=== PATIENT | male | born 1950 | race Caucasian/White ===

== ENCOUNTER 2018-07-30 06:35 | Day surgery (SDC) | payer MEDICARE, BC ==
[~2018-07-30 06:35] MED LIST: Midazolam 1 MG/ML 2 ML SDV ONE; fentaNYL 100 MCG/2 ML SDV ONE
[2018-07-30] MEDS ORDERED: Midazolam 1 MG/ML 2 ML SDV IV ONE ×3 (06:36→07:32)
[2018-07-30] MEDS ORDERED: fentaNYL 100 MCG/2 ML SDV IV ONE ×3 (06:36→07:30)
[2018-07-30] MEDS ORDERED: Dextrose 5%-0.45% NaCl 1,000 ML IV SCH (06:45)
--- NOTE | 2018-07-30 11:37 | OR ---
DATE: 07/30/2018 PROCEDURES: Esophagogastroduodenoscopy, narrow-band imaging, and multiple pinch biopsies. INSTRUMENT USED: GIF-Q180 Olympus video panendoscope. PREMEDICATIONS: No oral topical anesthesia used. Fentanyl 100 mcg intravenous, Versed 2 mg intravenous. Nasal 2 L O2 cannula. The procedure was done under pulse oximetry, BP recording, and seed pelleter. INDICATION: The patient with longstanding heartburn unexplained and not responsive to medical measures, on acid suppressant. DESCRIPTION OF PROCEDURE: Esophagogastroduodenoscopy is performed for detection of any active erosive lesions. Maldonado esophagus and/or malignancy also under consideration. H. pylori status to be determined. Endoscopic hemostasis therapy if needed. The scope was passed with ease. Adequate visualization of the esophagus was made from proximal to distal areas. No upper esophageal lesions identified. No distal esophageal stricture. No uphill or downhill esophageal varices. No Anya-Tucker tear noted. Grade D erosive changes were noted by [place] criteria. No esophageal polyp or tumor mass identified. [place] columnar epithelium was noted at around 30 cm distal to the oral verge, features consistent with Maldonado esophagus. Four-quadrant biopsies were taken from the area and sent for any histopathologic evidence of intestinal metaplasia. No proximal gastric varices noted. Gastric fundus examination by retroflexion showed no polypoid lesions. No gastric ulcer, malignant mass, or vascular ectasia identified. Duodenal bulb showed no ulcer. Visualized second part of the duodenum was unremarkable. Multiple pinch biopsies were taken from the gastric antrum and proximal body and sent for PyloriTek test for H. pylori and histopathology. No bleeding was noted from any of the visualized areas at the completion of examination. Photographs were taken of the duodenal bulb, gastric antrum, fundus, and distal esophagus. IMPRESSION: 1. Grade D gastroesophageal reflux disease. 2. Columnar-lined distal esophagus. The patient tolerated the procedure well. [facility] /[id number]
== END 2018-07-30 09:49 | disposition home or self-care (01) ==
LOC: DL.ENDO 06:35
PROVIDERS: ATTEND Internal Medicine Gastroenterology
DX: K22.70 Barrett's esophagus without dysplasia (principal); K29.50 Unspecified chronic gastritis without bleeding; K21.9 Gastro-esophageal reflux disease without esophagitis; J44.9 Chronic obstructive pulmonary disease, unspecified; Z87.891 Personal history of nicotine dependence; Z79.82 Long term (current) use of aspirin; Z79.899 Other long term (current) drug therapy
CPT/HCPCS: 43239; 87077; 88305; J2250; J3010; J7042

== ENCOUNTER 2020-07-19 06:34 | Emergency (ER) | payer MEDICARE, BC ==
[2020-07-19] MEDS ORDERED: Meclizine 12.5 MG Tab PO ONE ×2 (06:35→07:52)
--- NOTE | 2020-07-19 06:56 | EDM.PDOC ---
ED HPI GENERAL MEDICAL PROBLEM - General Chief Complaint: Gastrointestinal Problem Stated Complaint: NAUSEA Time Seen by Provider: 07/19/20 06:56 Source of Information: Reports: Patient, Old Records, RN, RN Notes Reviewed History Limitations: Reports: No Limitations - History of Present Illness INITIAL COMMENTS - FREE TEXT/NARRATIVE: Pt presents to ER from home by POV with c/o onset last evening of lightheadedness/dizziness with nausea while at rest. About 2 weeks ago he reports having a similar episode while mowing the lawn. He attributed the first episode to mowing in the heat, and it resolved with rest. He reports that he felt perfectly well yesterday until late in the evening when the nausea and dizziness began. He slept well through the night, but woke this morning at 0530HRS with dizziness and nausea. He states he woke pale, cold, and clammy. His symptoms were relieved by vomiting. Pt denies headache, visual changes, ear pain or ringing, sinus congestion, pain, or drainage. Denies neck pain or stiffness, fever, chills, abdominal pain, chest pain, cough, palpitations, rapid or irregular heart rate. Pt denies Hx CAD/IA, CVA, or head injury. Admits to Hx of inner ear problem several years ago that caused similar dizziness with nausea. Onset: Gradual Onset Date: 07/18/20 Duration: Constant, Waxing/Waning Location: Reports: Generalized Severity: Moderate Improves with: Reports: None Worsens with: Reports: None Associated Symptoms: Reports: No Other Symptoms - Related Data Allergies Allergy/AdvReac Type Severity Reaction Status Date / Time lactose AdvReac Abdominal Verified 07/19/20 06:58 Pain ENVIRONMENTAL Allergy Unknown UNKNOWN Uncoded 07/19/20 06:58 Home Meds: Home Meds Aspirin [Halfprin] 81 mg PO DAILY 07/25/18 [History] Naproxen Sodium [Aleve] 1 - 2 mg PO ASDIRECTED 07/25/18 [History] Vit A/C/E AC/Znox/Cupric Oxide [Eye Vitamin-Minerals Tablet] 1 tab PO DAILY 07/25/18 [History] atorvaSTATin [Lipitor] 10 mg PO BEDTIME 07/25/18 [History] Omeprazole 20 mg PO BID 10/31/18 [History] Rvnp-Jlcc-Brhvn [Cataract Opthalmic Solution] 1 ml EYEBOTH ASDIRECTED 11/01/18 [History] Psyllium Husk (With Sugar) [Metamucil Powder] 1 tbsp PO DAILY 11/01/18 [History] Past Medical History HEENT History: Reports: Cataract, Macular Degeneration Other HEENT History: wears glasses Cardiovascular History: Reports: High Cholesterol Respiratory History: Reports: COPD Gastrointestinal History: Reports: GERD Genitourinary History: Reports: None Musculoskeletal History: Reports: Arthritis Neurological History: Reports: None Psychiatric History: Reports: None Endocrine/Metabolic History: Reports: None Hematologic History: Reports: None Immunologic History: Reports: None Oncologic (Cancer) History: Reports: None Dermatologic History: Reports: None - Infectious Disease History Infectious Disease History: Reports: Chicken Pox, Measles - Past Surgical History Head Surgeries/Procedures: Reports: None HEENT Surgical History: Reports: Cataract Surgery, Tonsillectomy Cardiovascular Surgical History: Reports: None Respiratory Surgical History: Reports: None GI Surgical History: Reports: Appendectomy, Colonoscopy, EGD Male Surgical History: Reports: Vasectomy Musculoskeletal Surgical History: Reports: None Social & Family History - Family History Family Medical History: Noncontributory - Tobacco Use Smoking Status *Q: Former Smoker Used Tobacco, but Quit: Yes Month/Year Tobacco Last Used: 2006 Second Hand Smoke Exposure: No - Caffeine Use Caffeine Use: Reports: Coffee Other Caffeine Use: 1 CUP OF COFFEE - Recreational Drug Use Recreational Drug Use: No - Living Situation & Occupation Living situation: Reports: ED ROS GENERAL - Review of Systems Review Of Systems: Comprehensive ROS is negative, except as noted in HPI. ED EXAM, GI/ABD - Physical Exam Exam: See Below Exam Limited By: No Limitations General Appearance: Alert, WD/WN, No Apparent Distress Eyes: Bilateral: Normal Appearance (No scleral icterus), EOMI Ears: Normal External Exam, Hearing Grossly Normal Nose: Normal Inspection, Normal Mucosa, No Blood Throat/Mouth: Normal Inspection, Normal Lips, Normal Voice, No Airway Compromise Head: Atraumatic, Normocephalic Neck: Normal Inspection, Supple, Non-Tender, Full Range of Motion Respiratory/Chest: No Respiratory Distress, Lungs Clear, Normal Breath Sounds, No Accessory Muscle Use, Chest Non-Tender Cardiovascular: Normal Peripheral Pulses, Regular Rate, Rhythm, No Edema, No Gallop, No JVD, No Murmur, No Rub, Bradycardia GI/Abdominal Exam: Normal Bowel Sounds, Soft, Non-Tender, No Organomegaly, No Distention, No Abnormal Bruit, No Mass, Pelvis Stable (Male) Exam: Deferred Rectal (Males) Exam: Deferred Back Exam: Normal Inspection Extremities: Normal Inspection, Normal Range of Motion, Non-Tender, Normal Capillary Refill, No Pedal Edema Neurological: Alert, Oriented, CN II-XII Intact, Normal Cognition, Normal Gait, No Motor/Sensory Deficits Psychiatric: Normal Affect, Normal Mood Skin Exam: Warm, Dry, Intact, Normal Color, No Rash EKG INTERPRETATION EKG Date: 07/19/20 Time: 06:49 Rhythm: Other (Sinus Wilber) Rate (Beats/Min): 55 Vass: Normal P-Wave: Present QRS: Normal ST-T: Other (No ST-T segment elevation or depression. Low amplitude T waves.) QT: Prolonged Comparison: NA - No Prior EKG Course - Vital Signs Last Recorded V/S: Last Vital Signs Temp 96.5 F L 07/19/20 06:38 Pulse 60 07/19/20 06:38 Resp 18 07/19/20 06:38 BP 145/70 H 07/19/20 06:38 Pulse Ox 94 L 07/19/20 06:38 Orthostatic Blood Pressure [ 137/64 Standing] Orthostatic Blood Pressure [ 127/60 Sitting] Orthostatic Blood Pressure [ 113/62 Supine] Not orthostatic. - Orders/Labs/Meds Orders: Active Orders 24 hr Category Date Time Status Peripheral IV Insertion Adult [OM.PC] Stat Oth 07/19/20 07:02 Ordered Labs: Laboratory Tests 07/19/20 07/19/20 07/19/20 Range/Units 07:00 07:00 07:00 WBC 5.8 (5.0-10.0) 10^3/uL RBC 4.48 L (4.6-6.2) 10^6/uL Hgb 14.0 (14.0-18.0) g/dL Hct 42.4 (40.0-54.0) % MCV 94.6 (80-100) fL MCH 31.3 (27.0-34.0) pg MCHC 33.0 (33.0-35.0) g/dL Plt Count 184 (150-450) 10^3/uL Neut % (Auto) 56.4 (42.2-75.2) % Lymph % (Auto) 29.5 (20.5-50.1) % [place] % (Auto) 10.5 H (2-8) % Eos % (Auto) 3.3 H (1.0-3.0) % Baso % (Auto) 0.3 (0.0-1.0) % Sodium 141 (136-145) mmol/L Potassium 3.3 L (3.5-5.1) mmol/L Chloride 105 (98-107) mmol/L Carbon Dioxide 28 (21-32) mmol/L Anion Gap 11.3 (7-13) mEq/L BUN 17 (7-18) mg/dL Creatinine 1.07 (0.70-1.30) mg/dL Est Cr Clr Drug Dosing 67.28 mL/min Estimated GFR (MDRD) > 60 BUN/Creatinine Ratio 15.9 (No establ ref range) Glucose 139 H (74-99) mg/dL Calcium 8.7 (8.5-10.1) mg/dL Magnesium 1.9 (1.8-2.4) mg/dL Total Bilirubin 0.3 (0.2-1.0) mg/dL AST 24 (15-37) U/L ALT 39 (16-63) U/L Alkaline Phosphatase 79 (46-116) U/L Troponin I < 0.017 (0.000-0.056) ng/mL Total Protein 7.1 (6.4-8.2) g/dL Albumin 3.8 (3.4-5.0) g/dL Globulin 3.3 Albumin/Globulin Ratio 1.2 Lipase 108 (73-393) U/L Meds: Medications Discontinued Medications Generic Name Dose Route Start Last Admin Trade Name Freq PRN Reason Stop Dose Admin Meclizine HCl 25 mg 07/19/20 07:52 07/19/20 08:07 Antivert PO 07/19/20 07:53 25 mg ONETIME ONE Administration Meclizine HCl Confirm 07/19/20 07:57 07/19/20 08:07 Antivert Administered 07/19/20 07:58 Not Given Dose 50 mg .ROUTE .STK-MED ONE Sodium Chloride 10 ml 07/19/20 07:03 Saline Flush FLUSH ASDIRECTED PRN Keep Vein Open - Radiology Interpretation Free Text/Narrative:: [facility] [place] [facility] Final Radiology Report Call: [phone] assistance Online chat: [email or web address] Name: VIRGILIO ROGERS Age: 69Years M Date: 07/19/2020 SSN: -- : [id number] Study: CR CHEST 1V FRONTAL Requesting Physician: VIOLETTE VILLA Images: 1 Addl Studies: Provided Clinical History: lightheadedness, near syncope Contrast: Contrast Medium: Contrast Amount: Contrast Method: CONFIDENTIALITY STATEMENT This report is intended only for use by the referring physician, and only in accordance with law. If you received this in error, call [phone]. Page 1 of 1 PROCEDURE INFORMATION: Exam: XR Chest, 1 View Exam date and time: 07/19/2020 7:35 AM Age: 69 years old Clinical indication: Other: Syncope; Additional info: Lightheadedness, near syncope TECHNIQUE: Imaging protocol: XR of the chest Views: 1 view. COMPARISON: No relevant prior exams. FINDINGS: Lungs: Unremarkable. No consolidation. Pleural space: Unremarkable. No pleural effusion. No pneumothorax. Heart/Mediastinum: Unremarkable. No cardiomegaly. Bones/joints: Unremarkable. IMPRESSION: No acute cardiopulmonary disease. Thank you for allowing us to participate in the care of your patient. Dictated and Authenticated by: Catrachito Ballard MD 07/19/2020 7:41 AM Central Time ([place] & [place]) Departure - Departure Time of Disposition: 07:55 Disposition: Home, Self-Care 01 Condition: Good Clinical Impression: Labyrinthitis Qualifiers: Laterality: unspecified laterality Qualified Code(s): H83.09 - Labyrinthitis, unspecified ear - Discharge Information *PRESCRIPTION DRUG MONITORING PROGRAM REVIEWED*: Not Applicable *COPY OF PRESCRIPTION DRUG MONITORING REPORT IN PATIENT [place]: Not Applicable Instructions: Labyrinthitis Referrals: Jose M Miner MD [Primary Care Provider] - Forms: ED Department Discharge Additional Instructions: Rx: Meclizine 25mg Rest, drink plenty of water. Follow up in clinic with Dr. Miner this week for recheck. Ask Dr. Miner about a cardiac stress test. Sepsis Event Note (ED) - Evaluation Sepsis Screening Result: No Definite Risk - Focused Exam Vital Signs: Vital Signs Temp Pulse Resp BP Pulse Ox 07/19/20 06:38 96.5 F L 60 18 145/70 H 94 L - My Orders Last 24 Hours: My Active Orders 07/19/20 07:02 Peripheral IV Insertion Adult [OM.PC] Stat - Assessment/Plan Last 24 Hours: My Active Orders 07/19/20 07:02 Peripheral IV Insertion Adult [OM.PC] Stat
[2020-07-19] MEDS ORDERED: Sodium Chloride 0.9% 10 ML Syringe FLUSH PRN (07:03)
[2020-07-19 07:27] LABS: ANION GAP 11.3 mEq/L (7-13); CHLORIDE,CL 105 mmol/L (98-107); SODIUM,NA 141 mmol/L (136-145)
--- NOTE | 2020-07-19 07:41 | CR ---
PROCEDURE INFORMATION: Exam: XR Chest, 1 View Exam date and time: 07/19/2020 7:35 AM Age: 69 years old Clinical indication: Other: Syncope; Additional info: Lightheadedness, near syncope TECHNIQUE: Imaging protocol: XR of the chest Views: 1 view. COMPARISON: No relevant prior exams. FINDINGS: Lungs: Unremarkable. No consolidation. Pleural space: Unremarkable. No pleural effusion. No pneumothorax. Heart/Mediastinum: Unremarkable. No cardiomegaly. Bones/joints: Unremarkable. IMPRESSION: No acute cardiopulmonary disease.
[2020-07-19] MEDS ORDERED: Meclizine 12.5 MG Tab ONE (07:57)
== END 2020-07-19 08:10 | disposition home or self-care (01) ==
LOC: DL.ED 06:34
DX: H83.09 Labyrinthitis, unspecified ear (principal); E78.00 Pure hypercholesterolemia, unspecified; K21.9 Gastro-esophageal reflux disease without esophagitis; M19.90 Unspecified osteoarthritis, unspecified site; Z79.82 Long term (current) use of aspirin; Z87.891 Personal history of nicotine dependence; Z91.011 Allergy to milk products; Z91.048 Other nonmedicinal substance allergy status
CPT/HCPCS: 36415; 71045; 80053; 83690; 83735; 84484; 85025; 93005; 99284-25; A9270-GY

== ENCOUNTER 2021-10-10 05:30 | Day surgery (SDC) | payer MEDICARE, BC ==
[~2021-10-10 05:30] MED LIST changes: +Dextrose 5%-0.45% NaCl 1,000 ML IV SCH; -Midazolam 1 MG/ML 2 ML SDV ONE; +Sodium Chloride 0.9% 10 ML Syringe FLUSH PRN; -fentaNYL 100 MCG/2 ML SDV ONE
[2021-10-10] MEDS ORDERED: fentaNYL 100 MCG/2 ML SDV IV ONE ×3 (05:31→06:39)
[2021-10-10] MEDS ORDERED: Midazolam 1 MG/ML 2 ML SDV IV ONE ×3 (05:31→06:40)
[2021-10-10] MEDS ORDERED: fentaNYL 100 MCG/2 ML SDV ONE (05:46)
[2021-10-10] MEDS ORDERED: Midazolam 1 MG/ML 2 ML SDV ONE (05:46)
--- NOTE | 2021-10-10 08:38 | OR ---
DATE: 10/10/2021 PROCEDURES: Esophagogastroduodenoscopy, narrow band imaging, and multiple pinch biopsies. INSTRUMENT USED: GIF-HQ190 Olympus video panendoscope. PREMEDICATIONS: No oral or topical anesthesia used. Fentanyl 100 mcg intravenous, Versed 2 mg intravenous. Nasal O2 cannula. The procedure was done under pulse oximetry, BP recording, and alarm security or surveillance monitor. INDICATION: The patient with known Maldonado's esophagus. Surveillance esophagogastroduodenoscopy is performed for detection of any active erosive lesions, dysplasia, and/or malignancy also under consideration, endoscopic hemostasis therapy if needed. DESCRIPTION OF PROCEDURE: The scope was passed with ease. Adequate visualization of the esophagus was made from proximal to distal areas. No upper esophageal lesions identified. No distal esophageal stricture. No uphill or downhill esophageal varices. No Anya-Tucker tear. No evidence of erosive esophagitis by [place] criteria. No esophageal polyp or tumor mass identified. Sliding hiatal hernia was noted. [place] columnar epithelium was noted at around 33 cm distal to the oral verge, NBI views were obtained, photographs were taken. No proximal gastric varices noted. Gastric fundus examination by retroflexion showed no polypoid lesions. No gastric ulcer, malignant mass, or vascular ectasia identified. Duodenal bulb showed no ulcer. Visualized second part of duodenum was unremarkable. Four-quadrant biopsies were taken from the area of the pink columnar epithelium at 33, 35, and 37 cm distal to the oral verge and sent for any histopathologic evidence of dysplasia. No bleeding was noted from any of the visualized areas at the completion of examination. Photographs were taken of the duodenal bulb, gastric antrum, fundus, and distal esophagus. IMPRESSION: 1. Sliding hiatal hernia. 2. Maldonado's esophagus. The patient tolerated the procedure well. [facility] /[id number]
== END 2021-10-10 08:55 | disposition home or self-care (01) ==
LOC: DL.ENDO 05:30
PROVIDERS: ATTEND Internal Medicine Gastroenterology
DX: K22.70 Barrett's esophagus without dysplasia (principal); K44.9 Diaphragmatic hernia without obstruction or gangrene; K21.00 Gastro-esophageal reflux disease with esophagitis, without bleeding; E66.09 Other obesity due to excess calories; Z01.812 Encounter for preprocedural laboratory examination; Z20.822 Contact with and (suspected) exposure to COVID-19; Z68.30 Body mass index [BMI] 30.0-30.9, adult
CPT/HCPCS: 43239; 88305; J2250; J3010; J7042; U0002

== ENCOUNTER 2023-08-29 05:24 | Day surgery (SDC) | payer MEDICARE, BC ==
[2023-08-29] MEDS: Dextrose 5%-0.45% NaCl 1,000 ML IV SCH (05:55)
[2023-08-29] MEDS ORDERED: Midazolam 1 MG/ML 2 ML SDV ONE (06:12)
[2023-08-29] MEDS ORDERED: fentaNYL 100 MCG/2 ML SDV ONE (06:12)
[2023-08-29] MEDS: fentaNYL 100 MCG/2 ML SDV IV ONE ×2 (06:25)
[2023-08-29] MEDS: Midazolam 1 MG/ML 2 ML SDV IV ONE ×4 (06:26→06:32)
== END 2023-08-29 08:00 | disposition home or self-care (01) ==
LOC: DL.ENDO 05:24
PROVIDERS: ATTEND Internal Medicine Gastroenterology
DX: Z12.11 Encounter for screening for malignant neoplasm of colon (principal); K64.8 Other hemorrhoids; J44.9 Chronic obstructive pulmonary disease, unspecified; M15.9 Polyosteoarthritis, unspecified; K21.9 Gastro-esophageal reflux disease without esophagitis; K22.70 Barrett's esophagus without dysplasia; E66.09 Other obesity due to excess calories; Z87.891 Personal history of nicotine dependence; Z68.29 Body mass index [BMI] 29.0-29.9, adult
CPT/HCPCS: G0121; J2250; J3010; J7042

== ENCOUNTER 2024-10-16 06:29 | Day surgery (SDC) | payer MEDICARE, BC ==
[~2024-10-16 06:29] MED LIST changes: -Dextrose 5%-0.45% NaCl 1,000 ML IV SCH; +Midazolam 1 MG/ML 2 ML SDV ONE; -Sodium Chloride 0.9% 10 ML Syringe FLUSH PRN; +fentaNYL 100 MCG/2 ML SDV ONE
[2024-10-16] MEDS ORDERED: fentaNYL 100 MCG/2 ML SDV IV ONE (06:30)
[2024-10-16] MEDS ORDERED: Midazolam 1 MG/ML 2 ML SDV IV ONE (06:30)
[2024-10-16] MEDS: Dextrose 5%-0.45% NaCl 1,000 ML IV SCH (06:51)
[2024-10-16] MEDS: fentaNYL 100 MCG/2 ML SDV IV ONE ×2 (07:48→07:49)
[2024-10-16] MEDS: Midazolam 1 MG/ML 2 ML SDV IV ONE ×2 (07:49→07:50)
== END 2024-10-16 09:43 | disposition home or self-care (01) ==
LOC: DL.ENDO 06:29
PROVIDERS: ATTEND Internal Medicine Gastroenterology
DX: K22.70 Barrett's esophagus without dysplasia (principal)
CPT/HCPCS: 43239; 88305; J2250; J3010; J7799